=== PATIENT | female | born 1950 ===

== ENCOUNTER 2019-01-17 09:45 | Emergency (ER) | payer OTHER ==
[~2019-01-17] VITALS: Ht 157.5 cm; Wt 86.2 kg
[2019-01-17] MEDS ORDERED: GLIPIZIDE ER10 MG PO (10:21)
[2019-01-17] MEDS ORDERED: CARVEDILOL12.5 MG PO (10:22)
[2019-01-17] MEDS ORDERED: FORTAMET1000 MG PO (10:22)
== END 2019-01-17 13:36 | disposition home or self-care (01) ==
LOC: ER 09:45
DX: E11.65 Type 2 diabetes mellitus with hyperglycemia (principal); I16.0 Hypertensive urgency; I10 Essential (primary) hypertension; M54.89 Other dorsalgia